=== PATIENT | male | born 1945 | race Hispanic/Latino ===

== ENCOUNTER → 2018-04-25 | Outpatient (CLI) | payer OTHER | END | disposition home or self-care (01) | LOC: RAH 12:14 | PROVIDERS: ATTEND Internal Medicine | DX: K57.30 Diverticulosis of large intestine without perforation or abscess without bleeding (principal) | CPT/HCPCS: 74176 ==

== ENCOUNTER → 2018-08-27 | Outpatient (CLI) | payer OTHER | END | disposition home or self-care (01) | LOC: OIH 09:02 | PROVIDERS: ATTEND Internal Medicine | DX: I10 Essential (primary) hypertension (principal) | CPT/HCPCS: 71046 ==

== ENCOUNTER → 2019-02-17 | Outpatient (CLI) | payer OTHER | END | disposition home or self-care (01) | LOC: RAH 12:21 | PROVIDERS: ATTEND Internal Medicine | DX: K57.30 Diverticulosis of large intestine without perforation or abscess without bleeding (principal); K76.0 Fatty (change of) liver, not elsewhere classified; N20.0 Calculus of kidney; K31.89 Other diseases of stomach and duodenum; K59.00 Constipation, unspecified | CPT/HCPCS: 74176 ==

== ENCOUNTER → 2019-02-25 | Outpatient (CLI) | payer OTHER | END | disposition home or self-care (01) | LOC: OIH 10:59 | PROVIDERS: ATTEND Internal Medicine | DX: I10 Essential (primary) hypertension (principal) | CPT/HCPCS: 71046 ==

== ENCOUNTER → 2020-04-05 | Outpatient (CLI) | payer OTHER | END | disposition home or self-care (01) | LOC: OIH 09:39 | PROVIDERS: ATTEND Internal Medicine | DX: M47.816 Spondylosis without myelopathy or radiculopathy, lumbar region (principal); M48.01 Spinal stenosis, occipito-atlanto-axial region | CPT/HCPCS: 72100 ==

== ENCOUNTER 2020-07-31 21:07 | Emergency (ER) | payer OTHER ==
[2020-07-31] MEDS ORDERED: SODIUM CHLORIDE 0.9% 1000ML 1,000 ML IV ONE (21:08)
[2020-07-31 21:37] LABS: BASOPHILS % (AUTO) 0.4 % (0.0-5.0); EOSINOPHILS % (AUTO) 0.5 % (0.0-8.0); LYMPHOCYTES % (AUTO) 12.3 % (21.0-51.0); MEAN CORPUSCULAR HEMOGLOBIN 30.3 pg (27.0-33.0); MEAN CORPUSCULAR HGB CONC 34.1 g/dL (32.0-36.0); MEAN CORPUSCULAR VOLUME 88.9 fL (79-99); MONOCYTES % (AUTO) 5.1 % (3.0-13.0); NEUTROPHILS % (AUTO) 81.3 % (40.0-77.0); PLATELET COUNT (AUTO) 211 K/uL (130-400); RED BLOOD CELL COUNT(AUTO) 4.95 MIL/uL (4.50-6.20); RED CELL DISTRIBUTION WIDTH 12.7 % (11.0-15.5); WHITE BLOOD COUNT (AUTO) 11.7 K/uL (4.8-10.8)
[2020-07-31] MEDS ORDERED: ONDANSETRON HCL 4 MG/2 ML VIAL ONE (21:55)
[2020-07-31 21:57] LABS: POTASSIUM 3.8 mmol/L (3.5-5.1)
[2020-07-31] MEDS ORDERED: IOHEXOL-350 75 ML VIAL IV ONE (21:59)
[2020-07-31 22:34] LABS: ALBUMIN 3.4 g/dL (3.5-5.0); BILIRUBIN,TOTAL 0.5 mg/dL (0.2-1.0); CREATININE 1.5 mg/dL (0.5-1.5); TOTAL PROTEIN, SERUM 7.4 g/dL (6.0-8.3)
[2020-07-31 22:53] LABS: APPEARANCE,URINE Clear (CLEAR); BILIRUBIN,URINE Negative (NEGATIVE); COLOR,URINE Yellow (YELLOW); GLUCOSE, URINE (UA) 500 mg/dL (NEGATIVE); KETONES,URINE 40 mg/dL (NEGATIVE); LEUKOCYTE ESTERASE ,URINE Negative (NEGATIVE); NITRATE,URINE Negative (NEGATIVE); OCCULT BLOOD,URINE Moderate (NEGATIVE); PROTEIN,URINE Trace mg/dL (NEGATIVE)
[2020-07-31 23:07] LABS: BACTERIA,URINE None Seen /HPF (None Seen); SQUAMOUS EPITHELIAL CELL,UR Rare /HPF (0-2); WBC,URINE None Seen /HPF (0-1); YEAST,URINE BUDDING None Seen /HPF (None Seen)
[2020-08-01] MEDS ORDERED: KETOROLAC TROMETHAMINE 15MG/ML ONE (04:41)
[2020-08-01] MEDS ORDERED: MORPHINE SULFATE 2 MG/ML 1ML SYG ONE (04:42)
== END 2020-08-01 05:21 | disposition home or self-care (01) ==
LOC: EDH 21:07
DX: N13.2 Hydronephrosis with renal and ureteral calculous obstruction (principal); E11.9 Type 2 diabetes mellitus without complications; Z86.73 Personal history of transient ischemic attack (TIA), and cerebral infarction without residual deficits; Z72.0 Tobacco use
CPT/HCPCS: 36415 ×2; 71045; 74176; 80053; 81001; 83605 ×2; 83690; 84484; 85025; 93005; 96361; 96374; 96375; 99285; J1885; J2405; J7030; Q9967

== ENCOUNTER 2022-12-04 17:37 | Emergency (ER) | payer OTHER ==
[~2022-12-04] VITALS: Ht 180.3 cm; Wt 83.9 kg
[2022-12-04] MEDS ORDERED: 0.9%NACL 1000ML 1,000 ML IV ONE (18:00)
[2022-12-04] MEDS ORDERED: ONDANSETRON 4MG INJ IVP ONE (18:00)
[2022-12-04 18:48] LABS: BASOPHILS % (AUTO) 0.3 % (0.0-5.0); EOSINOPHILS % (AUTO) 0.1 % (0.0-8.0); LYMPHOCYTES % (AUTO) 5.8 % (21.0-51.0); MEAN CORPUSCULAR HEMOGLOBIN 29.9 pg (27.0-33.0); MEAN CORPUSCULAR HGB CONC 33.3 g/dL (32.0-36.0); MONOCYTES % (AUTO) 2.4 % (3.0-13.0); NEUTROPHILS % (AUTO) 90.1 % (40.0-77.0); PLATELET COUNT (AUTO) 214 K/uL (130-400); RED BLOOD CELL COUNT(AUTO) 4.78 MIL/uL (4.50-6.20); RED CELL DISTRIBUTION WIDTH 12.6 % (11.0-15.5); WHITE BLOOD COUNT (AUTO) 11.2 K/uL (4.8-10.8)
[2022-12-04 18:56] LABS: CREATININE 1.2 mg/dL (0.5-1.5)
[2022-12-04 18:59] LABS: APPEARANCE,URINE CLEAR (CLEAR); BILIRUBIN,URINE NEGATIVE (NEGATIVE); COLOR,URINE YELLOW (YELLOW); GLUCOSE, URINE (UA) 150 mg/dL (NEGATIVE); KETONES,URINE 40 mg/dL (NEGATIVE); LEUKOCYTE ESTERASE ,URINE NEGATIVE Leu/uL (NEGATIVE); NITRATE,URINE NEGATIVE (NEGATIVE); OCCULT BLOOD,URINE NEGATIVE (NEGATIVE); PH,URINE 5.5 (5.0-8.0); PROTEIN,URINE 30 mg/dL (NEGATIVE)
[2022-12-04 19:04] LABS: MUCUS,URINE RARE LPF (None Seen); RBC,URINE 0-1 /HPF (0-1); SQUAMOUS EPITHELIAL CELL,UR RARE /HPF (0-2)
[2022-12-04 19:05] LABS: ALBUMIN 3.5 g/dL (3.5-5.0); TOTAL PROTEIN, SERUM 7.6 g/dL (6.0-8.3)
[2022-12-04] MEDS ORDERED: IOHEXOL 350 MG/ML 100ML INFUS..BTL IV ONE (19:24)
[2022-12-04] MEDS ORDERED: ONDA-104 PO (22:27)
[2022-12-04] MEDS ORDERED: OMEP40CA21 PO (22:27)
[2022-12-04 22:33] VITALS: BP 140/63
== END 2022-12-04 22:43 | disposition home or self-care (01) ==
LOC: EDH 17:37
DX: K29.00 Acute gastritis without bleeding (principal); E11.9 Type 2 diabetes mellitus without complications; Z79.899 Other long term (current) drug therapy
CPT/HCPCS: 99285; 74177; 96374; 96361; 82150; 84484; 80053; 83690; 85025; 81001; 36415; 93005; J7030; J2405; Q9967

== ENCOUNTER → 2023-01-02 | Outpatient (CLI) | payer OTHER ==
[~2023-01-02] MED LIST: OMEP40CA21 PO; ONDA-104 PO
== END | disposition home or self-care (01) ==
LOC: RAH 13:23
PROVIDERS: ATTEND Family Medicine
DX: G31.9 Degenerative disease of nervous system, unspecified (principal); R53.1 Weakness; R26.9 Unspecified abnormalities of gait and mobility
CPT/HCPCS: 70450

== ENCOUNTER 2023-01-09 12:40 | Observation (INO) | payer OTHER ==
[~2023-01-09] VITALS: Ht 190.5 cm; Wt 88.5 kg
[2023-01-09 15:19] LABS: BASOPHILS % (AUTO) 0.5 % (0.0-5.0); EOSINOPHILS % (AUTO) 0.7 % (0.0-8.0); HEMATOCRIT 46.8 % (42-54); LYMPHOCYTES % (AUTO) 21.7 % (21.0-51.0); MEAN CORPUSCULAR HEMOGLOBIN 30.2 pg (27.0-33.0); MEAN CORPUSCULAR HGB CONC 33.3 g/dL (32.0-36.0); MEAN CORPUSCULAR VOLUME 90.7 fL (79-99); MONOCYTES % (AUTO) 6.2 % (3.0-13.0); NEUTROPHILS % (AUTO) 70.4 % (40.0-77.0); PLATELET COUNT (AUTO) 206 K/uL (130-400); RED BLOOD CELL COUNT(AUTO) 5.16 MIL/uL (4.50-6.20); RED CELL DISTRIBUTION WIDTH 12.9 % (11.0-15.5); WHITE BLOOD COUNT (AUTO) 13.6 K/uL (4.8-10.8)
[2023-01-09 15:30] LABS: CREATININE 0.9 mg/dL (0.5-1.5); POTASSIUM 4.6 mmol/L (3.5-5.1)
[2023-01-09 15:32] LABS: APPEARANCE,URINE CLEAR (CLEAR); BILIRUBIN,URINE NEGATIVE (NEGATIVE); COLOR,URINE YELLOW (YELLOW); GLUCOSE, URINE (UA) NEGATIVE (NEGATIVE); KETONES,URINE NEGATIVE (NEGATIVE); LEUKOCYTE ESTERASE ,URINE NEGATIVE Leu/uL (NEGATIVE); NITRATE,URINE NEGATIVE (NEGATIVE); OCCULT BLOOD,URINE NEGATIVE (NEGATIVE); PH,URINE 5.5 (5.0-8.0); PROTEIN,URINE 10 mg/dL (NEGATIVE)
[2023-01-09 15:35] LABS: ALBUMIN 4.1 g/dL (3.5-5.0); TOTAL PROTEIN, SERUM 8.3 g/dL (6.0-8.3)
[2023-01-09 15:38] LABS: BACTERIA,URINE RARE /HPF (None Seen); MUCUS,URINE RARE LPF (None Seen); OTHER CASTS, URINE 1 /LPF (None Seen); SQUAMOUS EPITHELIAL CELL,UR RARE /HPF (0-2)
[2023-01-09] MEDS ORDERED: LACTULOSE 20 GM/30 ML UDCUP PO PRN (17:00)
[2023-01-09] MEDS ORDERED: ARTIFICAL TEARS SOL 15 ML OP PRN ×2 (17:00→17:30)
[2023-01-09] MEDS ORDERED: ALPRAZOLAM 0.5 MG TABLET PO PRN (17:00)
[2023-01-09] MEDS ORDERED: ALBUTEROL 0.083% 2.5 MG/3 ML INH IH PRN (17:00)
[2023-01-09] MEDS ORDERED: POTASSIUM CHLORIDE 10MEQ/100ML 100 ML IV PRN ×2 (17:00)
[2023-01-09] MEDS ORDERED: MAGNESIUM 2GM PREMIX 50ML 50 ML IV PRN (17:00)
[2023-01-09] MEDS ORDERED: ONDANSETRON 4MG INJ IV PRN (17:00)
[2023-01-09] MEDS ORDERED: LOPERAMIDE HCL 2 MG CAP PO PRN (17:00)
[2023-01-09] MEDS ORDERED: DOCUSATE SODIUM 100 MG CAP PO PRN (17:00)
[2023-01-09] MEDS ORDERED: POTASSIUM CHLORIDE 10% ELIXIR 20 MEQ/15 ML UDCUP PO PRN (17:00)
[2023-01-09] MEDS ORDERED: BENZOCAINE/MENTH/CETYLPYRD CL 1 EACH LOZENGE MM PRN (17:00)
[2023-01-09] MEDS ORDERED: DiphenhydrAMINE HCL 50 MG/ML VIAL IV PRN (17:00)
[2023-01-09] MEDS ORDERED: KCL 20 MEQ ERTAB PO PRN (17:00)
[2023-01-09] MEDS ORDERED: DEXTROSE 50%-WATER 50 ML DISP.SYRIN IV PRN (17:00)
[2023-01-09] MEDS ORDERED: GLUCAGON 1MG KIT 1 MG ML IM PRN (17:00)
[2023-01-09] MEDS ORDERED: ZOLPIDEM TARTRATE 5 MG TAB PO PRN (17:00)
[2023-01-09] MEDS ORDERED: POLYETHYLENE GLYCOL 3350 17 GM POWD.PACK PO PRN (17:00)
[2023-01-09] MEDS ORDERED: GUAIFENESIN SUGAR-FREE 100 MG/5 ML UDCUP PO PRN (17:00)
[2023-01-09] MEDS ORDERED: ACETAMINOPHEN 325 MG TAB PO PRN ×2 (17:00)
[2023-01-09] MEDS ORDERED: FAMOTIDINE 20MG VIAL IV SCH (21:00)
[2023-01-10 05:29] LABS: ALBUMIN 3.4 g/dL (3.5-5.0); CREATININE 0.9 mg/dL (0.5-1.5); MAGNESIUM 2.2 mg/dL (1.80-2.40); POTASSIUM 3.7 mmol/L (3.5-5.1); TOTAL PROTEIN, SERUM 6.9 g/dL (6.0-8.3)
[2023-01-10] MEDS ORDERED: ONDANSETRON 4MG TABLET PO PRN (10:30)
[2023-01-10 13:17] VITALS: BP 121/65
[2023-01-11] MEDS ORDERED: PANTOPRAZOLE 40 MG TAB DR PO SCH (09:00)
== END 2023-01-10 12:59 | disposition left against medical advice (07) ==
LOC: EDH 12:40 → EDHIP 12:59 → INTOOBSV 16:37
PROVIDERS: ADMIT Internal Medicine Critical Care Medicine; ATTEND Internal Medicine Critical Care Medicine
DX: S12.110A Anterior displaced Type II dens fracture, initial encounter for closed fracture (principal); Z20.822 Contact with and (suspected) exposure to COVID-19; S09.90XA Unspecified injury of head, initial encounter; I10 Essential (primary) hypertension; E11.9 Type 2 diabetes mellitus without complications; D72.829 Elevated white blood cell count, unspecified; E78.00 Pure hypercholesterolemia, unspecified; R42 Dizziness and giddiness; W01.0XXA Fall on same level from slipping, tripping and stumbling without subsequent striking against object, initial encounter; Y92.009 Unspecified place in unspecified non-institutional (private) residence as the place of occurrence of the external cause; Y93.89 Activity, other specified; Y99.8 Other external cause status
CPT/HCPCS: 96374; 99285; 84484; 80053 ×2; 85025; 87880; 87804 ×2; 83605; 81001; 36415 ×2; 87635; 71045; 72100; 72070; 70450; 72125; 93005; 94664; 83735; 72040; 97161; 97039; 97116; G0378 ×20; C9803; J3490 ×2

== ENCOUNTER 2025-03-27 16:35 | Emergency (ER) | payer OTHER ==
[~2025-03-27] VITALS: Ht 172.7 cm; Wt 99.8 kg
[~2025-03-27 16:35] MED LIST changes: +AMOX1TAB16 PO; +ATOR10TA69 PO; +DIPH-1242 PO; +FAMO-136 PO; +LISI2.5T13 PO; +METF-444 PO; +TAMSULOSIN PO
--- NOTE | 2025-03-27 16:59 | ERN ---
ED Note History of Present Illness Stated Complaint: DIARRHEA Chief Complaint: Diarrhea Time Seen by MD: 16:40 Time Seen by Midlevel: 16:41 Dictation: 80-year-old male presents to the emergency department accompanied by his daughter for evaluation due to report of having nausea, vomiting and diarrhea that began yesterday. He states that yesterday he had approximately 4 episodes of vomiting and 1 of diarrhea. Today, he states that he only has some mild nausea. However, he states that today he did wake up with some abdominal pain primarily located on the left lower quadrant. He denies having had contact with anybody with similar symptoms. Patient states that he is the only 1 of the household presenting with these symptoms. He states that his level of abdominal pain he is rated as a 4/10. Upon initial evaluation, the patient presents mildly uncomfortable looking. Allergies: Coded Allergies: No Known Allergies (Verified Allergy, Unknown, 07/06/16) No Known Drug Allergies (Unverified Allergy, Unknown, 08/28/24) Emergency Care FILAMENT CUTTER: None Home Meds Active Scripts Diphenhydramine HCl (Benadryl) 25 Mg Cap, 25 MG PO QIDP PRN for ITCHING, #30 CAP 0 Refills Prov:ARNAV [facility]OD [facility] 07/26/23 Famotidine (Pepcid) 20 Mg Tablet, 20 MG PO BID, #30 TAB 0 Refills Prov:ARNAV NORWOOD [facility] 07/26/23 Amoxicillin/Potassium Clav (Amox Tr-K Clv 875-125 mg Tab) 875 Mg-125 Mg Tablet, 1 EACH PO Q12H, #14 TAB 0 Refills Prov:ARNAV [facility]WOOD [facility] 07/26/23 Ondansetron HCl (Ondansetron HCl) 4 Mg Tablet, 4 MG PO TIDP PRN for VOMITING, #20 TAB Prov:ELIZABETH GIVENS MD 12/04/22 Omeprazole (Omeprazole) 40 Mg Capsule.dr, 40 MG PO DAILY, #30 CAP Prov:ELIZABETH GIVENS MD 12/04/22 Reported Medications Metformin HCl (Metformin HCl) 500 Mg Tablet, 1 TAB PO DAILY 07/23/23 [Tamsulosin] No Conflict Check, 0.4 MG PO DAILY 07/23/23 Lisinopril (Lisinopril) 2.5 Mg Tablet, 1 TAB PO DAILY 07/23/23 Atorvastatin Calcium (Atorvastatin Calcium) 10 Mg Tablet, 1 TAB PO DAILY 07/23/23 Past Medical History Past Medical History: CVA, Diabetes-Type II, High Cholesterol Surgical History: Other Surgical History Other: NECK Social History: Negative, Lives with family RN Note Reviewed/Agreed w/PFSH: Yes Review of System Dictation Constitutional: Chills Abdomen/GI: Abdominal pain, nausea Initial Vital Sign VS Vital Signs Date Time Temp Pulse Resp B/P (MAP) Pulse Ox O2 Delivery O2 Flow Rate FiO2 03/27/25 16:37 98.1 111 18 141/84 96 03/27/25 17:12 Room Air* 0 21 Physical Exam Dictation General: awake, alert, uncomfortable looking Head/Face: Normocephalic, atraumatic Eyes: PERRL, EOMI ENT: Oral mucosa dry Neck: Trachea midline, supple Cardiovascular: RRR, no edema Respiratory: Symmetrical, non-labored Abdomen: Soft, tenderness to the left lower quadrant with voluntary guarding, non-distended, no guarding. Skin: Warm, dry, good turgor, no rash MS/Extremity: Pulses equal, no cyanosis, neurovascular intact, FROM Neuro: COAx4, GCS 15, steady gait, Results (Laboratory/Radiology) Laboratory/Radiology Laboratory Tests Test 03/27/25 17:04 03/27/25 17:57 03/27/25 19:08 White Blood Count 13.4 K/uL (4.8-10.8) H Red Blood Count 4.83 MIL/uL (4.50-6.20) Hemoglobin 14.6 g/dL (14.0-18.0) Hematocrit 42.9 % (42-54) Mean Corpuscular Volume 88.8 fL (79-99) Mean Corpuscular Hemoglobin 30.2 pg (27.0-33.0) Mean Corpuscular Hemoglobin Concent 34.0 g/dL (32.0-36.0) Red Cell Distribution Width 13.0 % (11.0-15.5) Platelet Count 182 K/uL (130-400) Mean Platelet Volume 10.8 fL (7.5-10.5) H Immature Granulocyte % (Auto) 0.5 % (0-1) Neutrophils (%) (Auto) 75.9 % (40.0-77.0) Lymphocytes (%) (Auto) 14.9 % (21.0-51.0) L Monocytes (%) (Auto) 7.7 % (3.0-13.0) Eosinophils (%) (Auto) 0.6 % (0.0-8.0) Basophils (%) (Auto) 0.4 % (0.0-5.0) Neutrophils # (Auto) 10.2 K/uL (1.8-7.7) H Lymphocytes # (Auto) 2.0 K/uL (1.0-4.8) Monocytes # (Auto) 1.0 K/uL (0.1-1.0) Eosinophils # (Auto) 0.08 K/uL (0.00-0.70) Basophils # (Auto) 0.05 K/uL (0.00-0.20) Absolute Immature Granulocyte (auto 0.07 K/uL (0-1) Nucleated Red Blood Cells 0.0 % (0.0-0.19) Sodium Level 132 mmol/L (136-145) L Potassium Level 3.3 mmol/L (3.5-5.1) L Chloride Level 97 mmol/L (101-111) L Carbon Dioxide Level 28 mmol/L (21-32) Blood Urea Nitrogen 18 mg/dL (7-18) Creatinine 1.5 mg/dL (0.5-1.3) H Glomerular Filtration Rate Calc 46 mL/min (>90) Random Glucose 187 mg/dL (70-105) H Lactic Acid Level 1.8 mmol/L (0.8-2.5) Total Calcium 8.4 mg/dL (8.5-10.1) L Total Bilirubin 0.9 mg/dL (0.2-1.0) Aspartate Amino Transf (AST/SGOT) 17 U/L (10-37) Alanine Aminotransferase (ALT/SGPT) 17 U/L (12-78) Alkaline Phosphatase 136 U/L (50-136) Troponin I High Sensitivity 6 ng/L (4-75) Total Protein 6.9 g/dL (6.0-8.3) Albumin 3.0 g/dL (3.5-5.0) L Lipase 29 U/L (16-77) Influenza Type A Antigen Negative For Type A Influenza Type B Antigen Negative For Type B SARS-CoV-2 Antigen (Rapid) PRESUMPTIVE NEGATIVE Urine Color COLORLESS (YELLOW) Urine Appearance CLEAR (CLEAR) Urine pH 6.5 (5.0-8.0) Urine Specific [place] 1.020 (1.001-1.031) Urine Protein NEGATIVE mg/dL (NEGATIVE) Urine Glucose (UA) 50 mg/dL (NEGATIVE) H Urine Ketones NEGATIVE mg/dL (NEGATIVE) Urine Occult Blood SMALL (NEGATIVE) H Urine Nitrate NEGATIVE (NEGATIVE) Urine Bilirubin NEGATIVE mg/dL (NEGATIVE) Urine Urobilinogen 0.2 mg/dL (0.2-1.0) Urine Leukocyte Esterase 25 Greta/uL (NEGATIVE) H Urine RBC 2-5 /HPF (0-1) H Urine WBC 11-25 /HPF (0-1) H Urine Squamous Epithelial Cells RARE /HPF (0-2) Urine Bacteria RARE /HPF (None Seen) Labs Reviewed?: Yes EKG Comment: EKG done on 03/27/2025 at 5:09 p.m.. Ventricular rate 93 beats per minute MI 170 MS QRS 93 MS QT 383 MS No STEMI. CT Scan Comment: CT abdomen/pelvis with IV contrast revealing a 4 mm ureteral stone with mild hydronephrosis as per radiology's read. ED Course ED Course Orders Procedure Category Date Status Time Cbc With Differential LAB 03/27/25 Complete 16:50 Comprehensive LAB 03/27/25 Complete Metabolic Panel 16:50 Urinalysis Profile LAB 03/27/25 Complete 16:50 Troponin I High LAB 03/27/25 Complete Sensitivity 16:51 Lactic Acid LAB 03/27/25 Complete 16:51 Influenza Type A & B, LAB 03/27/25 Complete Rapid 16:51 Covid19 (Sars Antigen LAB 03/27/25 Complete Rapid) 16:51 Blood Cult RACHELLE 03/27/25 In Process 16:51 Saline Lock Iv CPOE 03/27/25 Transmitted 16:51 Lipase LAB 03/27/25 Complete 16:51 0.9%Nacl 1000ml (Ns PHA 03/27/25 Complete 1000ml) 17:00 Ondansetron 4mg Inj PHA 03/27/25 Complete (Zofran 4mg Inj) 17:00 Chest 1vw RAD 03/27/25 Resulted 16:51 12 Lead Ekg Tracing- EKG 03/27/25 Complete Technical 16:51 Ct Abdomen/Pelvis CT 03/27/25 Resulted W/Contrast 16:55 Zosyn 3.375gm+Ns 50ml PHA 03/27/25 Complete (Zosyn 3.375gm+Ns 17:00 Iohexol (Omnipaque) PHA 03/27/25 Complete 17:54 Tamsulosin Hcl PHA 03/27/25 Complete (Flomax) 19:00 Culture Urine RACHELLE 03/27/25 In Process 19:23 Current Medications Medications (Trade) Dose Ordered Sig/Glynn Route PRN Reason Start Time Stop Time Status Last Admin Dose Admin Iohexol (Omnipaque) 75 ml STK-MED ONCE IV 03/27/25 17:54 03/27/25 17:58 DC Ondansetron HCl (zoFRAN 4MG INJ) 4 mg ONCE ONCE IVP 03/27/25 17:00 03/27/25 17:01 DC 03/27/25 17:48 Piperacillin Sod/ Tazobactam Sod (Zosyn 3.375gm+NS 50ml) 3.375 gm ONCE ONCE IV 03/27/25 17:00 03/27/25 17:01 DC 03/27/25 17:48 Sodium Chloride 1,000 ml @ 0 mls/hr ONCE ONCE IV 03/27/25 17:00 03/27/25 17:01 DC 03/27/25 17:48 Tamsulosin HCl (FloMAX) 0.4 mg ONCE ONCE PO 03/27/25 19:00 03/27/25 19:01 DC Vital Signs Date Time Temp Pulse Resp B/P (MAP) Pulse Ox O2 Delivery O2 Flow Rate FiO2 03/27/25 17:12 98.2 96 23 169/86 95 Room Air* 0 21 03/27/25 16:37 98.1 111 18 141/84 96 Medical Decision Making MDM MDM: Differential diagnosis: Diarrhea, acute gastroenteritis, acute UTI, acute pyelonephritis. Rationale: Tests considered and ordered secondary to shared decision making include: Previous outside records reviewed: Old ER visits. Risk of complication and/or morbidity or mortality of patient management: None Medications-Per medication reconciliation Need for hospitalization: Patient does not meet criteria for hospitalization. Need for emergency major/minor surgery: No There are no social concerns with this patient. Prescription drug management Prescriptions will include symptomatic care Patient's prior external medical records from other ER visits were reviewed by me as indicated. Prior testing and results from previous visits were reviewed. Prior tests were taken into account with medical decision making and resource utilization, independent historian/historians were used to obtain complete medical history. I independently interpreted the test that were performed, results were reviewed by me and considered findings on radiology if ordered. Medical management and examination interpretation discussions were had by me with other qualified healthcare professionals as indicated for the patient's care. The patient initially presented with a report of having mild abdominal pain with diarrhea. The concern initially was that of an acute diverticulitis or small- bowel obstruction. However, he was noted to have a 4 mm ureteral stone for which Flomax was given and he was able to have significant release. Patient was medicated with Zosyn and will be discharged home with the oral antibiotic for which the patient agrees along with the family to the treatment plan of care for DX & DISP Disposition: Discharge Departure Impression: Primary Impression: Acute UTI Additional Impressions: Left ureteral stone, Diarrhea Condition: Stable Scripts Cephalexin Monohydrate (Keflex) 500 Mg Cap 500 MG PO TID for 7 Days, #21 CAP Prov: RYNE HOLLAND 03/27/25 Tamsulosin HCl (Flomax) 0.4 Mg Cap.er.24h 1 CAP PO DAILY for 30 Days, #30 CAP 0 Refills Prov: RYNE HOLLAND 03/27/25 Referrals: BARRY STEEN MD (PCP) Time of Disposition: 19:52 RYNE HOLLAND Mar 27, 2025 16:59
--- NOTE | 2025-03-27 17:09 | NUR ---
PENDING GFR RESULTS, IV SITE, & CONSENT FOR CT EXAM.
[2025-03-27 17:15] LABS: IMMATURE GRANULOCYTE ABSOLUTE 0.07 K/uL (0-1); NUCLEATED RED BLOOD CELLS 0.0 % (0.0-0.19); PLATELET COUNT (AUTO) 182 K/uL (130-400); RED BLOOD CELL COUNT(AUTO) 4.83 MIL/uL (4.50-6.20); RED CELL DISTRIBUTION WIDTH 13.0 % (11.0-15.5); WHITE BLOOD COUNT (AUTO) 13.4 K/uL (4.8-10.8)
--- NOTE | 2025-03-27 17:15 | EKG ---
[facility] Test Date: 2025-03-27 Test Time: 17:09:57 Pat Name: NEAL FERNÁNDEZ Department: ED Room: Gender: M Production Support Consultant: [id number] : 1945 Requested By: RYNE HOLLAND Order Number: [id number] Reading MD: Marce Boston Measurements Intervals [place] Rate: 93 P: 30 SD: 170 QRS: -15 QRSD: 93 T: 53 QT: 383 QTc: 476 Interpretive Statements Sinus rhythm Inferior infarct, old Compared to ECG 07/20/2023 16:32:38 Myocardial infarct finding now present Electronically Signed On 03-28-2025 05:43:54 CDT by Marce Boston Please click the below link to view image of tracing.
[2025-03-27 17:25] LABS: CREATININE 1.5 mg/dL (0.5-1.3); GLOMERULAR FILTR. RATE CALC 46.0 mL/min (>90); GLUCOSE,RANDOM 187.0 mg/dL (70-105); SODIUM SERUM 132.0 mmol/L (136-145); UREA NITROGEN, BLOOD 18.0 mg/dL (7-18)
[2025-03-27 17:39] LABS: ASPARTATE AMINOTRANSFERASE 17.0 U/L (10-37); TOTAL PROTEIN, SERUM 6.9 g/dL (6.0-8.3)
[2025-03-27] MEDS: 0.9%NACL 1000ML 1,000 ML IV ONE (17:48)
[2025-03-27] MEDS: ZOSYN 3.375GM +NS 50ML IV ONE (17:48)
[2025-03-27] MEDS ORDERED: IOHEXOL-350 75 ML VIAL IV ONE (17:54)
--- NOTE | 2025-03-27 18:13 | HMCIMG ---
EXAM: CR Chest, 1 View. CLINICAL HISTORY: pain COMPARISON: None provided. FINDINGS: LUNGS: The lungs show no infiltrate or other acute finding. PLEURAL SPACES: No pleural effusion or pneumothorax. MEDIASTINUM: Cardiac size and mediastinal contours within normal limits. BONES: No acute osseous abnormality. IMPRESSION: No acute cardiopulmonary pathology is evident. /[place]
[2025-03-27 18:38] LABS: COVID19 (SARS ANTIGEN RAPID) PRESUMPTIVE NEGATIVE (NEGATIVE); INFLUENZA TYPE A Negative For Type A (NEGATIVE); INFLUENZA TYPE B Negative For Type B (NEGATIVE)
[2025-03-27 19:15] LABS: APPEARANCE,URINE CLEAR (CLEAR); GLUCOSE, URINE (UA) 50 mg/dL (NEGATIVE); LEUKOCYTE ESTERASE ,URINE 25 Leu/uL (NEGATIVE); NITRATE,URINE NEGATIVE (NEGATIVE); OCCULT BLOOD,URINE SMALL (NEGATIVE)
[2025-03-27 19:16] LABS: ADD UA MICROSCOPIC YES
[2025-03-27 19:22] LABS: SQUAMOUS EPITHELIAL CELL,UR RARE /HPF (0-2)
--- NOTE | 2025-03-27 19:41 | HMCIMG ---
EXAM: CT Abdomen and Pelvis with IV contrast CLINICAL HISTORY: pain TECHNIQUE: Axial computed tomography images of the abdomen and pelvis with intravenous contrast. CONTRAST: with intravenous contrast. COMPARISON: CT abdomen dated 12/04/22. FINDINGS: LUNG BASES: The right lung base demonstrates a few emphysematous bullae. The largest one measures 3 cm. No pneumothorax or pleural effusion.Atherosclerosis of the coronary arteries. LIVER: Unremarkable. GALLBLADDER AND BILE DUCTS: The gallbladder appears within normal limits. No radio-opaque gallstones are seen. No biliary ductal dilatation is evident. PANCREAS: Unremarkable. SPLEEN: Unremarkable. ADRENAL GLANDS: Unremarkable. KIDNEYS, URETERS, AND BLADDER: The left renal system shows an impacted calculus at the proximal ureter (approximately 8.0 cm distal to the left UPJ), causing mild hydroureter and hydronephrosis. The calculus measures 4 mm in size The right kidney is unremarkable. STOMACH AND BOWEL: Unremarkable appearance of the stomach and bowel. No evidence of bowel obstruction. No evidence suggesting enteritis or colitis. APPENDIX: No evidence of acute appendicitis on CT examination. PERITONEUM: No free fluid. No free air. LYMPH NODES: No lymphadenopathy is evident. REPRODUCTIVE: Mildly enlarged prostate indenting the bladder base. VASCULATURE: No evidence of abdominal aortic aneurysm. BONES: No aggressive appearing osseous lesion. No acute osseous pathology evident. IMPRESSION: 1. Left proximal ureteral calculus (4 mm) with mild hydroureter and hydronephrosis. /[place]
[2025-03-27] MEDS ORDERED: CEPH500B PO (19:52)
[2025-03-27] MEDS ORDERED: TAMS-55 PO (19:52)
[2025-03-27 20:09] VITALS: BP 156/76; PULSE 98; RESP 22; TEMP 98.4; O2SAT 96
== END 2025-03-27 20:22 | disposition home or self-care (01) ==
LOC: EDH 16:35
DX: N39.0 Urinary tract infection, site not specified (principal); N20.1 Calculus of ureter; R19.7 Diarrhea, unspecified; E11.9 Type 2 diabetes mellitus without complications; E78.00 Pure hypercholesterolemia, unspecified; Z79.84 Long term (current) use of oral hypoglycemic drugs; Z79.899 Other long term (current) drug therapy; Z86.73 Personal history of transient ischemic attack (TIA), and cerebral infarction without residual deficits; Z20.822 Contact with and (suspected) exposure to COVID-19
CPT/HCPCS: 99285; 74177; 96365; 71045; 96366; 96375; 87426; 84484; 80053; 83690; 85025; 87040 ×2; 87086; 87804 ×2; 83605; 81001; 36415; 93005; J7030; J2405; J2543; Q9967

== ENCOUNTER 2025-04-04 10:50 | Inpatient (IN) | payer OTHER ==
[~2025-04-04] VITALS: Ht 188 cm; Wt 106.4 kg
[~2025-04-04 10:50] MED LIST changes: +CEPH500B PO; +TAMS-55 PO
[2025-04-04] MEDS: 0.9%NACL 1000ML 1,000 ML IV ONE (11:50)
[2025-04-04 12:01] LABS: IMMATURE GRANULOCYTE ABSOLUTE 0.16 K/uL (0-1); NUCLEATED RED BLOOD CELLS 0.0 % (0.0-0.19); PLATELET COUNT (AUTO) 321 K/uL (130-400); RED BLOOD CELL COUNT(AUTO) 5.15 MIL/uL (4.50-6.20); RED CELL DISTRIBUTION WIDTH 12.4 % (11.0-15.5); WHITE BLOOD COUNT (AUTO) 12.2 K/uL (4.8-10.8)
--- NOTE | 2025-04-04 12:03 | HMCIMG ---
EXAM: CR Chest, 1 View. CLINICAL HISTORY: AMS COMPARISON: 03/27/23 FINDINGS: LUNGS: There is no mass, infiltrate, or acute pulmonary abnormality. PLEURAL SPACES: No pleural effusion or pneumothorax. MEDIASTINUM: The cardiomediastinal silhouette is within normal limits. BONES: No acute osseous abnormality. IMPRESSION: No acute cardiopulmonary pathology is evident. /[place]
[2025-04-04 12:14] LABS: CREATININE 1.5 mg/dL (0.5-1.3); GLOMERULAR FILTR. RATE CALC 46.0 mL/min (>90); GLUCOSE,RANDOM 184.0 mg/dL (70-105); SODIUM SERUM 132.0 mmol/L (136-145); UREA NITROGEN, BLOOD 24.0 mg/dL (7-18)
[2025-04-04 12:18] LABS: ASPARTATE AMINOTRANSFERASE 19.0 U/L (10-37); CREATINE KINASE, TOTAL 32.0 U/L (21-232); TOTAL PROTEIN, SERUM 7.9 g/dL (6.0-8.3)
[2025-04-04 12:49] LABS: APPEARANCE,URINE CLOUDY (CLEAR); GLUCOSE, URINE (UA) NEGATIVE (NEGATIVE); LEUKOCYTE ESTERASE ,URINE 250 Leu/uL (NEGATIVE); NITRATE,URINE NEGATIVE (NEGATIVE); OCCULT BLOOD,URINE SMALL (NEGATIVE)
[2025-04-04 12:56] LABS: ADD UA MICROSCOPIC YES
[2025-04-04 12:57] LABS: SQUAMOUS EPITHELIAL CELL,UR FEW /HPF (0-2); WBC CLUMP FEW /HPF (0-1)
--- NOTE | 2025-04-04 13:09 | HMCIMG ---
EXAM: CT Head Without IV contrast. CLINICAL HISTORY: AMS TECHNIQUE: Axial computed tomography images of the head/brain without intravenous contrast. COMPARISON: 01/09/23 FINDINGS: BRAIN: No acute bleed or infarct. Stable chronic ischemic and atrophic changes. Stable old bilateral occipital infarcts with encephalomalacia and dystrophic calcifications. Stable small old lacunar infarct in the bilateral basal ganglia. No midline shift or extra-axial collections. VENTRICLES: No hydrocephalus. ORBITS: The orbits are unremarkable. SINUSES AND MASTOIDS: The paranasal sinuses and mastoid air cells are clear. BONES: No fracture. SOFT TISSUES: Unremarkable. IMPRESSION: No acute bleed or infarct. Stable chronic ischemic and atrophic changes. Stable old bilateral occipital infarcts with encephalomalacia and dystrophic calcifications. Stable small old lacunar infarct in the bilateral basal ganglia. /[place]
--- NOTE | 2025-04-04 15:21 | EKG ---
[facility] Test Date: 2025-04-04 Test Time: 11:52:40 Pat Name: NEAL FERNÁNDEZ Department: ED Room: Gender: M Channel Account Manager: 07 : 1945 Requested By: SHARON AVELAR Order Number: [id number] Reading MD: Vel Smart Measurements Intervals [place] Rate: 106 P: 57 [place]: 161 QRS: 34 QRSD: 90 T: 91 QT: 362 QTc: 482 Interpretive Statements Sinus tachycardia Compared to ECG 03/27/2025 17:09:57 Sinus rhythm no longer present Myocardial infarct finding no longer present Electronically Signed On 04-04-2025 15:25:45 CDT by Vel Smart Please click the below link to view image of tracing.
--- NOTE | 2025-04-04 15:23 | ERN ---
ED Note History of Present Illness Stated Complaint: HALLUCINATION Chief Complaint: Halluciations Time Seen by MD: 10:56 Dictation: 80-year-old male presenting to the emergency department with confusion and generalized weakness decreased p.o. intake patient was seen here two days ago for mild UTI and discharged on antibiotics however he is not doing any better. Family reports he is now showing worsening symptoms including hallucinations Allergies: Coded Allergies: No Known Allergies (Verified Allergy, Unknown, 07/06/16) No Known Drug Allergies (Unverified Allergy, Unknown, 08/28/24) Home Meds Active Scripts Cephalexin Monohydrate (Keflex) 500 Mg Cap, 500 MG PO TID for 7 Days, #21 CAP Prov:RYNE HOLLAND REGISTERED NURSE HH CASE MANAGER 03/27/25 Tamsulosin HCl (Flomax) 0.4 Mg Cap.er.24h, 1 CAP PO DAILY for 30 Days, #30 CAP 0 Refills Prov:RYNE HOLLAND REGISTERED NURSE HH CASE MANAGER 03/27/25 Diphenhydramine HCl (Benadryl) 25 Mg Cap, 25 MG PO QIDP PRN for ITCHING, #30 CAP 0 Refills Prov:ARNAV [facility]OD [facility] 07/26/23 Famotidine (Pepcid) 20 Mg Tablet, 20 MG PO BID, #30 TAB 0 Refills Prov:ARNAV [facility]OD [facility] 07/26/23 Amoxicillin/Potassium Clav (Amox Tr-K Clv 875-125 mg Tab) 875 Mg-125 Mg Tablet, 1 EACH PO Q12H, #14 TAB 0 Refills Prov:ARNAV [facility]OD [facility] 07/26/23 Ondansetron HCl (Ondansetron HCl) 4 Mg Tablet, 4 MG PO TIDP PRN for VOMITING, #20 TAB Prov:ELIZABETH GIVENS MD 12/04/22 Omeprazole (Omeprazole) 40 Mg Capsule.dr, 40 MG PO DAILY, #30 CAP Prov:ELIZABETH GIVENS MD 12/04/22 Reported Medications Metformin HCl (Metformin HCl) 500 Mg Tablet, 1 TAB PO DAILY 07/23/23 [Tamsulosin] No Conflict Check, 0.4 MG PO DAILY 07/23/23 Lisinopril (Lisinopril) 2.5 Mg Tablet, 1 TAB PO DAILY 07/23/23 Atorvastatin Calcium (Atorvastatin Calcium) 10 Mg Tablet, 1 TAB PO DAILY 07/23/23 Past Medical History Past Medical History: CVA, Diabetes-Type II, High Cholesterol Surgical History: Other Surgical History Other: NECK Social History: Negative, Lives with family Review of System Dictation Unable to obtain due to mental status Initial Vital Sign VS Vital Signs Date Time Temp Pulse Resp B/P (MAP) Pulse Ox O2 Delivery O2 Flow Rate FiO2 04/04/25 10:52 98.4 116 18 121/81 97 Room Air 04/04/25 11:46 0 21 Physical Exam Dictation General: awake, alert, no distress Head/Face: Normocephalic, atraumatic Eyes: PERRL, EOMI, vision at baseline ENT: oral cavity clear, TMs clear, no signs of infection Neck: Trachea midline, supple, no nuchal rigidity Cardiovascular: RRR, normal S1/S2, No MRGs, no JVD Respiratory: CTAB, no respiratory distress, No rales or wheezes Abdomen: Soft, non-tender, non-distended, normal bowel sounds, no guarding or rebound. Skin: Warm, dry, normal turgor, no rash MS/Extremity: Pulses equal, no cyanosis, neurovascular intact, FROM Neuro: Normal tone and strength on neurologic exam however patient is somewhat confused of current situation Results (Laboratory/Radiology) Laboratory/Radiology Laboratory Tests Test 04/04/25 11:50 04/04/25 12:00 White Blood Count 12.2 K/uL (4.8-10.8) H Red Blood Count 5.15 MIL/uL (4.50-6.20) Hemoglobin 15.6 g/dL (14.0-18.0) Hematocrit 46.3 % (42-54) Mean Corpuscular Volume 89.9 fL (79-99) Mean Corpuscular Hemoglobin 30.3 pg (27.0-33.0) Mean Corpuscular Hemoglobin Concent 33.7 g/dL (32.0-36.0) Red Cell Distribution Width 12.4 % (11.0-15.5) Platelet Count 321 K/uL (130-400) Mean Platelet Volume 10.8 fL (7.5-10.5) H Immature Granulocyte % (Auto) 1.3 % (0-1) H Neutrophils (%) (Auto) 64.1 % (40.0-77.0) Lymphocytes (%) (Auto) 26.1 % (21.0-51.0) Monocytes (%) (Auto) 6.1 % (3.0-13.0) Eosinophils (%) (Auto) 1.5 % (0.0-8.0) Basophils (%) (Auto) 0.9 % (0.0-5.0) Neutrophils # (Auto) 7.8 K/uL (1.8-7.7) H Lymphocytes # (Auto) 3.2 K/uL (1.0-4.8) Monocytes # (Auto) 0.7 K/uL (0.1-1.0) Eosinophils # (Auto) 0.18 K/uL (0.00-0.70) Basophils # (Auto) 0.11 K/uL (0.00-0.20) Absolute Immature Granulocyte (auto 0.16 K/uL (0-1) Nucleated Red Blood Cells 0.0 % (0.0-0.19) Sodium Level 132 mmol/L (136-145) L Potassium Level 3.4 mmol/L (3.5-5.1) L Chloride Level 95 mmol/L (101-111) L Carbon Dioxide Level 26 mmol/L (21-32) Blood Urea Nitrogen 24 mg/dL (7-18) H Creatinine 1.5 mg/dL (0.5-1.3) H Glomerular Filtration Rate Calc 46 mL/min (>90) Random Glucose 184 mg/dL (70-105) H Lactic Acid Level 2.9 mmol/L (0.8-2.5) H Total Calcium 9.0 mg/dL (8.5-10.1) Total Bilirubin 0.9 mg/dL (0.2-1.0) Direct Bilirubin 0.3 mg/dL (0.0-0.3) Aspartate Amino Transf (AST/SGOT) 19 U/L (10-37) Alanine Aminotransferase (ALT/SGPT) 17 U/L (12-78) Alkaline Phosphatase 119 U/L (50-136) Total Creatine Kinase 32 U/L (21-232) # Troponin I High Sensitivity 44 ng/L (4-75) Total Protein 7.9 g/dL (6.0-8.3) Albumin 2.7 g/dL (3.5-5.0) L Urine Color YELLOW (YELLOW) Urine Appearance CLOUDY (CLEAR) H Urine pH 5.5 (5.0-8.0) Urine Specific [place] 1.016 (1.001-1.031) Urine Protein 20 mg/dL (NEGATIVE) H Urine Glucose (UA) NEGATIVE mg/dL (NEGATIVE) Urine Ketones 10 mg/dL (NEGATIVE) H Urine Occult Blood SMALL (NEGATIVE) H Urine Nitrate NEGATIVE (NEGATIVE) Urine Bilirubin NEGATIVE mg/dL (NEGATIVE) Urine Urobilinogen 2.0 mg/dL (0.2-1.0) H Urine Leukocyte Esterase 250 Greta/uL (NEGATIVE) H Urine RBC 2-5 /HPF (0-1) H Urine WBC 26-50 /HPF (0-1) H Urine WBC Clumps (Auto) FEW /HPF (0-1) Urine Squamous Epithelial Cells FEW /HPF (0-2) Urine Bacteria None /HPF (None Seen) Labs Reviewed?: Yes EKG: (+) NSR, (+) rhythm, (+) NE, (+) QRS, (+) nonspecific ST T wave chg ED Course ED Course Orders Procedure Category Date Status Time 12 Lead Ekg Tracing- EKG 04/04/25 Logged Technical 11:11 Hepatic Function Panel LAB 04/04/25 Complete 11:11 Creatine Kinase, Total LAB 04/04/25 Complete 11:11 Basic Metabolic Panel LAB 04/04/25 Complete 11:11 Blood Cult RACHELLE 04/04/25 In Process 11:11 Cbc With Differential LAB 04/04/25 Complete 11:11 Lactic Acid LAB 04/04/25 Complete 11:11 Troponin I High LAB 04/04/25 Complete Sensitivity 11:11 Urinalysis Profile LAB 04/04/25 Complete 11:11 Ct Head/Brain W/O CT 04/04/25 Resulted Contrast 11:11 Chest 1vw RAD 04/04/25 Resulted 11:11 Ceftriaxone 2gm Vial PHA 04/04/25 Complete (Rocephin 2gm Inj) 11:30 0.9%Nacl 1000ml (Ns PHA 04/04/25 Complete 1000ml) 11:30 Culture Urine RACHELLE 04/04/25 In Process 12:56 Lactic Acid (Removed) LAB 04/04/25 Logged 15:08 Current Medications Medications (Trade) Dose Ordered Sig/Glynn Route PRN Reason Start Time Stop Time Status Last Admin Dose Admin Ceftriaxone Sodium (Rocephin 2gm Inj) 2 gm ONCE ONCE IVPB 04/04/25 11:30 04/04/25 11:31 DC 04/04/25 11:50 Sodium Chloride 1,000 ml @ 0 mls/hr ONCE ONCE IV 04/04/25 11:30 04/04/25 11:31 DC 04/04/25 11:50 Vital Signs Date Time Temp Pulse Resp B/P (MAP) Pulse Ox O2 Delivery O2 Flow Rate FiO2 04/04/25 14:07 98.1 77 18 145/73 95 Room Air* 0 04/04/25 13:01 98.1 80 18 137/81 98 Room Air* 0 04/04/25 11:46 97.7 104 18 132/78 97 Room Air* 0 04/04/25 10:52 98.4 116 18 121/81 97 Room Air Medical Decision Making MDM MDM: Differential diagnosis: Rationale: Tests considered and ordered secondary to shared decision making include: labs, ECG and radiology Previous outside records reviewed: Old ER visits. Risk of complication and/or morbidity or mortality of patient management: None Medications-Per medication reconciliation Need for hospitalization: Patient does meet criteria for hospitalization. Need for emergency major/minor surgery: No There are no social concerns with this patient. Prescription drug management Prescriptions will include symptomatic care Patient's prior external medical records from other ER visits were reviewed by me as indicated. Prior testing and results from previous visits were reviewed. Prior tests were taken into account with medical decision making and resource utilization, independent historian/historians were used to obtain complete medical history. I independently interpreted the test that were performed, results were reviewed by me and considered findings on radiology if ordered. Medical management and examination interpretation discussions were had by me with other qualified healthcare professionals as indicated for the patient's care. 80-year-old male with UTI sepsis confusion, hemodynamically stable IV fluids and antibiotics given admitting to Medicine for further care and evaluation. DX & DISP Disposition: Inpatient Departure Impression: Primary Impression: Acute UTI Additional Impression: Sepsis Condition: Stable Referrals: BARRY STEEN MD (PCP) SHARON AVELAR MD Apr 04, 2025 15:23
[2025-04-04 16:00] VITALS: BP 123/71; PULSE 82; RESP 16; TEMP 98.1
[2025-04-04] MEDS ORDERED: ARTIFICAL TEARS SOL 15 ML OP PRN (16:00)
[2025-04-04] MEDS ORDERED: BENZOCAINE/MENTH/CETYLPYRD CL 1 EACH LOZENGE MM PRN (16:00)
[2025-04-04] MEDS ORDERED: NITROGLYCERIN 0.4 MG SL TAB SL PRN (16:00)
[2025-04-04] MEDS ORDERED: MAG/ALUM/SIMETH 30 ML UDCUP PO PRN (16:00)
[2025-04-04] MEDS ORDERED: guaiFENesin-DM 200/20MG 10ML PO PRN (16:00)
[2025-04-04] MEDS ORDERED: LOPERAMIDE HCL 2 MG CAP PO PRN (16:00)
[2025-04-04] MEDS ORDERED: LACTULOSE 20 GM/30 ML UDCUP PO PRN (16:00)
[2025-04-04 16:50] VITALS: O2SAT 99
--- NOTE | 2025-04-04 16:53 | NUR ---
GAVE REPORT TO DARVIN BRYANT, PATIENT WAS TRANSFERRED TO ROOM #403, PATIENT WAS TRANSPORTED VIA ER BED, ALONG WITH HIS PERSONAL BELONGINGS AND SON ACCOMPANYING HIM.
[2025-04-04 16:57] VITALS: BP 151/98; PULSE 81; RESP 19; TEMP 97.9
--- NOTE | 2025-04-04 16:57 | NUR ---
WENT IN TO REMOVE PATIENT OF MONITOR SO HE COULD BE TRANSFERRED, AND SAW THAT PATIENT HAD REMOVED HIS IV, CALLED TO ADVISE DARVIN BRYANT.
[2025-04-04 17:00] VITALS: BP 134/76; PULSE 72; RESP 16; TEMP 97.4; O2SAT 9
[2025-04-04 19:45] VITALS: O2SAT 98
[2025-04-04] MEDS: FAMOTIDINE 20MG TAB PO SCH (19:48)
--- NOTE | 2025-04-04 20:49 | HP ---
[facility] HISTORY & PHYSICAL Date Patient Seen: Apr 04, 2025 Time of Visit: 20:48 Supervising Physician: Dr. Gioavnni Parmar Primary Care Physician: BARRY STEEN MD (PCP) Outpatient Specialists: Inpatient Consults: PROBLEM LIST: Sepsis, POA Metabolic encephalopathy, POA Acute complicated cystitis, POA, with failed outpatient antibiotic therapy Recent UTI diagnosis on 03/27/2025 Failure to thrive, POA Acute dehydration, POA 2/2 acute anorexia/decreased p.o. Leukocytosis/lactic acidosis, POA Electrolyte derangement (hyponatremia, hypokalemia, hypochloremia) Acute kidney injury, GFR 46 Diabetes mellitus with hyperglycemia Anemia Hypoalbuminemia Frailty/debility/general body weakness Obesity, BMI 30.1 Octogenarian HPI: Mr. Winkler is an 80-year-old male with a history of CVA, DM type 2, hypercholesteremia who [place] [facility] [place] confusion, generalized weakness, and anorexia/ decreased p.o. intake. The patient presented to here two days ago for mild UTI and discharged on antibiotics. Daughter reported that the patient finish all the antibiotic, but is now showing worsening symptoms including hallucinations. Per chart review: The urine cultures done on 03/27/2025 showed no growth. Labs: WBCs 12.2, lactic acid 2.9, albumin 2.7, Na 132, potassium 3.4, chloride 95, GFR 46. UA positive for leuk EST. Chest x-ray: No acute cardiopulmonary pathology. CT head: No acute bleed or infarct. Stable chronic ischemic and atrophic changes. Stable old bilateral occipital infarcts with encephalomalacia and dystrophic calcifications. Stable small old lacunar infarct in the bilateral basal ganglia. ED provider request patient be admitted to the hospital with a diagnosis of acute UTI and sepsis. I assessed the patient bedside in room number four three. The patient appeared weak, somnolent, breathing was even, unlabored, in no distress. I informed the patient and daughter of labs, diagnostics, and plan of care. Daughter had multiple concerns and had multiple questions which were addressed by me. The patient and daughter verbalized understanding and is in agreement with the plan. Plan and assessment are listed below. PAST MEDICAL HX: see above PAST SURGICAL HX: Neck surgery SOCIAL HISTORY: No tobacco, ETOH, or illicit drug use Coded Allergies: No Known Allergies (Verified Allergy, Unknown, 07/06/16) No Known Drug Allergies (Unverified Allergy, Unknown, 08/28/24) REVIEW OF SYSTEMS: 12 point ROS reviewed with patient. Pertinent positives mentioned above. Otherwise negative. PHYSICAL EXAM: GENERAL: Alert, weak, awake oriented x 2 HEENT: EOMI, Sclera non icteric, moist mucosa NECK: Supple, no JVD, trachea midline LUNGS: Clear breath sounds bilaterally. No wheezes HEART: Regular rate and rhythm. Normal S1 and S2, without murmurs ABD: Abdomen soft, nontender. Bowel sounds present EXT: No clubbing cyanosis or edema NEURO: Alert and oriented 2, follows commands Vital Signs (last 8hr) Date Time Temp Pulse Resp B/P (MAP) Pulse Ox O2 Delivery O2 Flow Rate FiO2 04/04/25 17:00 97.3 72 16 134/76 96 Room Air 04/04/25 16:57 97.9 81 19 151/98 98 Room Air 0.0 04/04/25 16:50 99 Room Air* 0 21 04/04/25 16:00 98.1 82 16 123/71 98 Room Air 0.0 04/04/25 14:07 98.1 77 18 145/73 95 Room Air* 0 21 04/04/25 13:01 98.1 80 18 137/81 98 Room Air* 0 21 LABS: Hematology Labs: Test 04/04/25 11:50 Range/Units White Blood Count 12.2 H 4.8-10.8 K/uL Red Blood Count 5.15 4.50-6.20 MIL/uL Hemoglobin 15.6 14.0-18.0 g/dL Hematocrit 46.3 42-54 % Mean Corpuscular Volume 89.9 79-99 fL Mean Corpuscular Hemoglobin 30.3 27.0-33.0 pg Mean Corpuscular Hemoglobin Concent 33.7 32.0-36.0 g/dL Red Cell Distribution Width 12.4 11.0-15.5 % Platelet Count 321 130-400 K/uL Mean Platelet Volume 10.8 H 7.5-10.5 fL Immature Granulocyte % (Auto) 1.3 H 0-1 % Neutrophils (%) (Auto) 64.1 40.0-77.0 % Lymphocytes (%) (Auto) 26.1 21.0-51.0 % Monocytes (%) (Auto) 6.1 3.0-13.0 % Eosinophils (%) (Auto) 1.5 0.0-8.0 % Basophils (%) (Auto) 0.9 0.0-5.0 % Neutrophils # (Auto) 7.8 H 1.8-7.7 K/uL Lymphocytes # (Auto) 3.2 1.0-4.8 K/uL Monocytes # (Auto) 0.7 0.1-1.0 K/uL Eosinophils # (Auto) 0.18 0.00-0.70 K/uL Basophils # (Auto) 0.11 0.00-0.20 K/uL Absolute Immature Granulocyte (auto 0.16 0-1 K/uL Nucleated Red Blood Cells 0.0 0.0-0.19 % Chemistry Labs: Test 04/04/25 11:50 Range/Units Sodium Level 132 L 136-145 mmol/L Potassium Level 3.4 L 3.5-5.1 mmol/L Chloride Level 95 L 101-111 mmol/L Carbon Dioxide Level 26 21-32 mmol/L Blood Urea Nitrogen 24 H 7-18 mg/dL Creatinine 1.5 H 0.5-1.3 mg/dL Glomerular Filtration Rate Calc 46 >90 mL/min Random Glucose 184 H 70-105 mg/dL Lactic Acid Level 2.9 H 0.8-2.5 mmol/L Total Calcium 9.0 8.5-10.1 mg/dL Total Bilirubin 0.9 0.2-1.0 mg/dL Direct Bilirubin 0.3 0.0-0.3 mg/dL Aspartate Amino Transf (AST/SGOT) 19 10-37 U/L Alanine Aminotransferase (ALT/SGPT) 17 12-78 U/L Alkaline Phosphatase 119 50-136 U/L Total Creatine Kinase 32 # 21-232 U/L Troponin I High Sensitivity 44 4-75 ng/L Total Protein 7.9 6.0-8.3 g/dL Albumin 2.7 L 3.5-5.0 g/dL DIAGNOSTICS / RADIOLOGY RESULTS: [ ] PLAN Admit to medical floor with telemetry monitoring. Continue Rocephin IV 2 g Q 24H. IV gentle hydration. (ED administered NS L bolus) Obtain influenza, COVID, rapid strep, CT abdomen and pelvis. Follow blood cultures and urine cultures. P.r.n. medications for: Pain management, fever, nausea, vomiting, hypertension, hypertension Glucometer checks a.c. and HS with insulin regular sliding scale as needed per protocol. Blood pressure checks every 4 hours and as needed. Reconcile home medications once available. Monitor renal and liver function. Monitor electrolytes and treat accordingly. A.m. labs. + A1c GI and DVT prophylaxis. Further plan/orders per hospitalization course. NEURO: Minimize central acting medications as possible. Maintain fall precautions, adequate lighting during the day PULMONARY: Supplemental 02 as needed. Maintain aspiration precautions at all times CARDIOVASCULAR: Follow hemodynamics. Vital signs per facility protocol GI & NUTRITION: Continue with nutritional support. Continue stool softeners and laxatives as needed. KIDNEYS & ELECTROLYTES: Strict monitoring of intake, output and overall fluid balance. Avoid nephrotoxic medications to the extent possible. Medications to be dosed according to renal function. Monitor electrolytes and replace as needed ENDOCRINE: Maintain blood glucose between 100-180 at all times. Hypoglycemia protocol in place INFECTIOUS DISEASE: Trend temperature, WBC and procalcitonin level Follow cultures, deescalate antibiotics as soon as possible. Panculture if new onset fever ONCOLOGY/HEMATOLOGY/COAGULATION: Monitor for s/s of bleeding Monitor hemoglobin, coagulation studies as needed SKIN: Pressure ulcer prevention per facility protocol Specialty mattress ORTHO/REHAB: Continue PT/OT Prophylaxis: Continue GI and DVT prophylaxis Code Status: Full Resuscitation Disposition: TBD ATTESTATION BY PHYSICIAN I reviewed the documentation, medical decision making, and treatment plan as noted by the VINAY above. I agree with the findings and plan of care. Giovanni Parmar MD, LUCIA M [employer] SALES REPRESENTATIVE Apr 04, 2025 20:48
[2025-04-05] VITALS (9 sets, daily range): BP systolic 129–159; BP diastolic 69–90; PULSE 68–96; RESP 17–20; TEMP 97.7–98.8; O2SAT 96–100
[2025-04-05] MEDS: 0.9% NACL 500ML IV.SOLN 500 ML IV ONE (02:43)
[2025-04-05] MEDS ORDERED: TAMS-55 PO (04:00)
[2025-04-05] MEDS ORDERED: CEPH500C2 PO (04:00)
[2025-04-05 09:25] LABS: NUCLEATED RED BLOOD CELLS 0.0 % (0.0-0.19); PLATELET COUNT (AUTO) 246.0 K/uL (130-400); RED BLOOD CELL COUNT(AUTO) 3.7 MIL/uL (4.50-6.20); RED CELL DISTRIBUTION WIDTH 12.4 % (11.0-15.5); WHITE BLOOD COUNT (AUTO) 8.7 K/uL (4.8-10.8)
[2025-04-05] MEDS: THIAMINE HCL 100 MG TABLET PO SCH (09:33)
[2025-04-05 09:42] LABS: ASPARTATE AMINOTRANSFERASE 12.0 U/L (10-37); CREATININE 1.1 mg/dL (0.5-1.3); GLOMERULAR FILTR. RATE CALC 67.0 mL/min (>90); GLUCOSE,RANDOM 127.0 mg/dL (70-105); SODIUM SERUM 141.0 mmol/L (136-145); TOTAL PROTEIN, SERUM 6.3 g/dL (6.0-8.3); UREA NITROGEN, BLOOD 16.0 mg/dL (7-18)
--- NOTE | 2025-04-05 09:42 | NUR ---
DCP: [facility] met with pt and his daughter Tami Winkler [phone]. Daughter and son Maurice [phone] live with pt at pt's home. Son works, daughter is primary caregiver for pt. Prior to 1 week ago, Pt was independent of ADLS, able to transfer and ambulate on his own. For tthe past week, pt has been bed bound, required assist with ADLS, re positioning, changing of adult diapers. Daughter also does the home management, transportation and meal prep . At home, pt as a walker, w/c, bsc, shower chair. No HH or HD services. PCP is Lesa Burch and uses [facility] for rx needs. Daughter denies need for SNF at this time, [place] [facility]. DCP is home. Addendum: 04/05/25 at 0951 by LEMUEL GONZALES SS Amended: Links added.
[2025-04-05 10:30] LABS: SARS-CoV-2, RNA, NAAT NEGATIVE SARS CoV-2 (NEGATIVE)
[2025-04-05 10:34] LABS: INFLUENZA TYPE A Negative For Type A (NEGATIVE)
[2025-04-05 10:40] LABS: INFLUENZA TYPE B Positive For Type B (NEGATIVE)
[2025-04-05] MEDS: PoTASSium chl 10% ELIXIR 20MEQ 20 MEQ/15 ML UDCUP PO PRN (11:19)
[2025-04-05] MEDS: LACTATED RINGERS 1000ML 1,000 ML IV SCH (11:19)
[2025-04-05] MEDS: OSELTAMIVIR PHOSPHATE 75 MG CAP PO SCH (11:19)
--- NOTE | 2025-04-05 12:08 | PN ---
[facility] PROGRESS NOTE Date Patient Seen: Apr 05, 2025 Time of Visit: 12:07 Supervising Physician: Dr. Malia Bush Primary Care Physician: BARRY STEEN MD (PCP) Outpatient Specialists: Inpatient Consults: NA PROBLEM LIST: Sepsis present on admission Acute metabolic encephalopathy, POA Influenza B positive Acute complicated cystitis, POA, with failed outpatient antibiotic therapy Recent UTI diagnosis with kidney stones per daughter Failure to thrive, POA Acute dehydration, POA 2/2 acute anorexia/decreased p.o. Leukocytosis/lactic acidosis, POA Electrolyte derangement (hyponatremia, hypokalemia, hypochloremia) Acute kidney injury, GFR 46 Diabetes mellitus with hyperglycemia Anemia Hypoalbuminemia Frailty/debility/general body weakness Obesity, BMI 30.1 History of CVA Octogenarian INTERVAL HISTORY: Patient assessed at bedside. AAOX3. Currently on room air. Able to voice needs and follow commands. Sitting on bedside chair. Influenza B positive. Per daughter at bedside, patient had recent kidney stones. Patient denies any flank pain. CT abdomen/pelvis without contrast ordered. Creatinine improved to 1.1. Denies any chest pain, abdominal pain, nausea or vomiting. Plan of care explained to patient and daughter. Plan:. Start on Tamiflu BID Pending CT abdomen/pelvis without contrast Continue on IV Rocephin, follow culture results Resume home medications Disposition: TBD REVIEW OF SYSTEMS: 12 point ROS reviewed with patient. Pertinent positives mentioned above. Oth erwise negative. PHYSICAL EXAM: GENERAL: Alert, weak, awake oriented x 2 HEENT: EOMI, Sclera non icteric, moist mucosa NECK: Supple, no JVD, trachea midline LUNGS: Clear breath sounds bilaterally. No wheezes HEART: Regular rate and rhythm. Normal S1 and S2, without murmurs ABD: Abdomen soft, nontender. Bowel sounds present EXT: No clubbing cyanosis or edema NEURO: Alert and oriented 2, follows commands Vital Signs (last 8hr) Date Time Temp Pulse Resp B/P (MAP) Pulse Ox O2 Delivery O2 Flow Rate FiO2 04/05/25 11:24 98.2 77 18 129/69 100 Room Air 04/05/25 07:52 98.4 82 20 140/80 100 Room Air 04/05/25 05:02 98.2 86 18 151/90 94 Room Air LABS: Hematology Labs: Test 04/05/25 09:08 04/04/25 11:50 Range/Units White Blood Count 8.7 # 4.8-10.8 K/uL Red Blood Count 3.70 #L 4.50-6.20 MIL/uL Hemoglobin 11.4 #L 14.0-18.0 g/dL Hematocrit 34.0 #L 42-54 % Mean Corpuscular Volume 91.9 79-99 fL Mean Corpuscular Hemoglobin 30.8 27.0-33.0 pg Mean Corpuscular Hemoglobin Concent 33.5 32.0-36.0 g/dL Red Cell Distribution Width 12.4 11.0-15.5 % Platelet Count 246 130-400 K/uL Mean Platelet Volume 10.3 7.5-10.5 fL Nucleated Red Blood Cells 0.0 0.0-0.19 % Immature Granulocyte % (Auto) 1.3 H 0-1 % Neutrophils (%) (Auto) 64.1 40.0-77.0 % Lymphocytes (%) (Auto) 26.1 21.0-51.0 % Monocytes (%) (Auto) 6.1 3.0-13.0 % Eosinophils (%) (Auto) 1.5 0.0-8.0 % Basophils (%) (Auto) 0.9 0.0-5.0 % Neutrophils # (Auto) 7.8 H 1.8-7.7 K/uL Lymphocytes # (Auto) 3.2 1.0-4.8 K/uL Monocytes # (Auto) 0.7 0.1-1.0 K/uL Eosinophils # (Auto) 0.18 0.00-0.70 K/uL Basophils # (Auto) 0.11 0.00-0.20 K/uL Absolute Immature Granulocyte (auto 0.16 0-1 K/uL Chemistry Labs: Test 04/05/25 11:35 04/05/25 09:08 04/04/25 22:51 04/04/25 11:50 Range/Units Whole Blood Glucose 141 H 70-110 MG/DL Sodium Level 141 136-145 mmol/L Potassium Level 3.1 L 3.5-5.1 mmol/L Chloride Level 106 101-111 mmol/L Carbon Dioxide Level 28 21-32 mmol/L Blood Urea Nitrogen 16 7-18 mg/dL Creatinine 1.1 0.5-1.3 mg/dL Glomerular Filtration Rate Calc 67 >90 mL/min Random Glucose 127 H 70-105 mg/dL Total Calcium 7.8 L 8.5-10.1 mg/dL Magnesium Level 1.80 1.80-2.40 mg/dL Total Bilirubin 0.5 # 0.2-1.0 mg/dL Aspartate Amino Transf (AST/SGOT) 12 10-37 U/L Alanine Aminotransferase (ALT/SGPT) 12 # 12-78 U/L Alkaline Phosphatase 88 # 50-136 U/L Total Protein 6.3 # 6.0-8.3 g/dL Albumin 2.2 L 3.5-5.0 g/dL Lactic Acid Level 2.0 0.8-2.5 mmol/L Direct Bilirubin 0.3 0.0-0.3 mg/dL Total Creatine Kinase 32 # 21-232 U/L Troponin I High Sensitivity 44 4-75 ng/L DIAGNOSTICS / RADIOLOGY RESULTS: NA PLAN NEURO: Minimize central acting medications as possible. Maintain fall precautions, adequate lighting during the day PULMONARY: Supplemental 02 as needed. Maintain aspiration precautions at all times CARDIOVASCULAR: Follow hemodynamics. Vital signs per facility protocol GI & NUTRITION: Continue with nutritional support. Continue stool softeners and laxatives as needed. KIDNEYS & ELECTROLYTES: Strict monitoring of intake, output and overall fluid balance. Avoid nephrotoxic medications to the extent possible. Medications to be dosed according to renal function. Monitor electrolytes and replace as needed ENDOCRINE: Maintain blood glucose between 100-180 at all times. Hypoglycemia protocol in place INFECTIOUS DISEASE: Trend temperature, WBC and procalcitonin level Follow cultures, deescalate antibiotics as soon as possible. Panculture if new onset fever ONCOLOGY/HEMATOLOGY/COAGULATION: Monitor for s/s of bleeding Monitor hemoglobin, coagulation studies as needed SKIN: Pressure ulcer prevention per facility protocol Specialty mattress ORTHO/REHAB: Continue PT/OT Prophylaxis: Continue GI and DVT prophylaxis Code Status: Full Resuscitation Disposition: TASIA CENTENO NP Apr 05, 2025 12:08
[2025-04-05] MEDS ORDERED: PHARMACY COMMUNICATION MISC SCH (16:30)
[2025-04-06] VITALS (7 sets, daily range): BP systolic 119–184; BP diastolic 75–95; PULSE 79–103; RESP 17–18; TEMP 97.7–98.9; O2SAT 98
[2025-04-06 04:10] LABS: NUCLEATED RED BLOOD CELLS 0.0 % (0.0-0.19); PLATELET COUNT (AUTO) 311.0 K/uL (130-400); RED BLOOD CELL COUNT(AUTO) 4.7 MIL/uL (4.50-6.20); RED CELL DISTRIBUTION WIDTH 12.4 % (11.0-15.5); WHITE BLOOD COUNT (AUTO) 9.9 K/uL (4.8-10.8)
[2025-04-06 04:26] LABS: ASPARTATE AMINOTRANSFERASE 17.0 U/L (10-37); CREATININE 1.2 mg/dL (0.5-1.3); GLOMERULAR FILTR. RATE CALC 61.0 mL/min (>90); GLUCOSE,RANDOM 133.0 mg/dL (70-105); SODIUM SERUM 138.0 mmol/L (136-145); TOTAL PROTEIN, SERUM 7.2 g/dL (6.0-8.3); UREA NITROGEN, BLOOD 15.0 mg/dL (7-18)
--- NOTE | 2025-04-06 10:57 | HMCIMG ---
EXAM: CT Abdomen and Pelvis Without IV contrast CLINICAL HISTORY: abdominal pain TECHNIQUE: Axial computed tomography images of the abdomen and pelvis without intravenous contrast. CONTRAST: No IV contrast. COMPARISON: Study dated 03/27/2025. FINDINGS: LUNG BASES: The right lung base demonstrates a few emphysematous bullae. The largest one measures 3 cm. Dependent airway disease along bilateral lower lobes, presumed to represent basal atelectasis. No pleural effusions are seen. Coronary artery calcifications. LIVER: Unremarkable. GALLBLADDER AND BILE DUCTS: The gallbladder appears within normal limits. No radioopaque gallstones are seen. No biliary ductal dilatation is evident. PANCREAS: Unremarkable. SPLEEN: Unremarkable. ADRENAL GLANDS: Unremarkable. KIDNEYS, URETERS, AND BLADDER: There is 4.0 mm calculus in the left distal ureter with mild hydroureter and hydronephrosis. Mild bilateral perinephric fat stranding is concerning for renal parenchymal disease. The kidneys appear within normal limits. No urinary calculi are seen. STOMACH AND BOWEL: Colonic diverticulosis without diverticulitis. Unremarkable appearance of the stomach and bowel. No evidence of bowel obstruction. No evidence suggesting enteritis or colitis. APPENDIX: Normal appendix. PERITONEUM: No free fluid. No free air. LYMPH NODES: No lymphadenopathy is evident. REPRODUCTIVE: Unremarkable as visualized. VASCULATURE: Atherosclerotic changes in the form of eccentric vessel wall calcification in the abdominal aorta and its major branches. No evidence of abdominal aortic aneurysm. BONES: Degenerative changes in the visualized spine in the form of marginal osteophytes and degenerative discs at multiple lumbar levels. No aggressive appearing osseous lesion. No acute osseous pathology is evident. IMPRESSION: 4.0 mm left distal ureteral calculus with mild hydroureter and hydronephrosis. /[place]
[2025-04-06] MEDS: PoTASSium chloRIDE 20MEQ ER 20 MEQ ERTAB PO PRN (11:03)
--- NOTE | 2025-04-06 13:54 | PN ---
[facility] PROGRESS NOTE Date Patient Seen: Apr 06, 2025 Time of Visit: 13:54 Supervising Physician: [ ] Primary Care Physician: BARRY STEEN MD (PCP) Outpatient Specialists: Inpatient Consults: NA PROBLEM LIST: Sepsis present on admission Acute metabolic encephalopathy, POA Influenza B positive Acute complicated cystitis, POA, with failed outpatient antibiotic therapy Recent UTI diagnosis with kidney stones per daughter Failure to thrive, POA Acute dehydration, POA 2/2 acute anorexia/decreased p.o. Leukocytosis/lactic acidosis, POA Electrolyte derangement (hyponatremia, hypokalemia, hypochloremia) Acute kidney injury, GFR 46 Diabetes mellitus with hyperglycemia Anemia Hypoalbuminemia Frailty/debility/general body weakness Obesity, BMI 30.1 History of CVA Octogenarian INTERVAL HISTORY: Patient assessed at bedside. AAOX3. Currently on room air. Able to voice needs and follow commands. Sitting on bedside chair. Influenza B positive. Per daughter at bedside, patient had recent kidney stones. Patient denies any flank pain. CT abdomen/pelvis without contrast ordered. Creatinine improved to 1.1. Denies any chest pain, abdominal pain, nausea or vomiting. Plan of care explained to patient and daughter. Plan:. Start on Tamiflu BID Pending CT abdomen/pelvis without contrast Continue on IV Rocephin, follow culture results Resume home medications Disposition: TBD REVIEW OF SYSTEMS: 12 point ROS reviewed with patient. Pertinent positives mentioned above. Otherwise negative. PHYSICAL EXAM: GENERAL: Alert, weak, awake oriented x 2 HEENT: EOMI, Sclera non icteric, moist mucosa NECK: Supple, no JVD, trachea midline LUNGS: Clear breath sounds bilaterally. No wheezes HEART: Regular rate and rhythm. Normal S1 and S2, without murmurs ABD: Abdomen soft, nontender. Bowel sounds present EXT: No clubbing cyanosis or edema NEURO: Alert and oriented 2, follows commands Vital Signs (last 8hr) Date Time Temp Pulse Resp B/P (MAP) Pulse Ox O2 Delivery O2 Flow Rate FiO2 04/06/25 11:42 99.0 100 18 119/77 94 Room Air 04/06/25 08:05 98.1 103 18 184/95 95 Room Air 04/06/25 07:51 98 Room Air* 0 21 LABS: Hematology Labs: Test 04/06/25 03:54 Range/Units White Blood Count 9.9 4.8-10.8 K/uL Red Blood Count 4.70 # 4.50-6.20 MIL/uL Hemoglobin 14.3 # 14.0-18.0 g/dL Hematocrit 42.4 # 42-54 % Mean Corpuscular Volume 90.2 79-99 fL Mean Corpuscular Hemoglobin 30.4 27.0-33.0 pg Mean Corpuscular Hemoglobin Concent 33.7 32.0-36.0 g/dL Red Cell Distribution Width 12.4 11.0-15.5 % Platelet Count 311 # 130-400 K/uL Mean Platelet Volume 10.5 7.5-10.5 fL Nucleated Red Blood Cells 0.0 0.0-0.19 % Chemistry Labs: Test 04/06/25 11:26 04/06/25 03:54 04/04/25 22:51 Range/Units Whole Blood Glucose 156 H 70-110 MG/DL Sodium Level 138 136-145 mmol/L Potassium Level 3.8 3.5-5.1 mmol/L Chloride Level 101 101-111 mmol/L Carbon Dioxide Level 29 21-32 mmol/L Blood Urea Nitrogen 15 7-18 mg/dL Creatinine 1.2 0.5-1.3 mg/dL Glomerular Filtration Rate Calc 61 >90 mL/min Random Glucose 133 H 70-105 mg/dL Total Calcium 8.9 8.5-10.1 mg/dL Magnesium Level 2.00 1.80-2.40 mg/dL Total Bilirubin 0.3 # 0.2-1.0 mg/dL Aspartate Amino Transf (AST/SGOT) 17 10-37 U/L Alanine Aminotransferase (ALT/SGPT) 15 # 12-78 U/L Alkaline Phosphatase 104 50-136 U/L Total Protein 7.2 6.0-8.3 g/dL Albumin 2.6 L 3.5-5.0 g/dL Lactic Acid Level 2.0 0.8-2.5 mmol/L DIAGNOSTICS / RADIOLOGY RESULTS: [ ] PLAN NEURO: Minimize central acting medications as possible. Maintain fall precautions, adequate lighting during the day PULMONARY: Supplemental 02 as needed. Maintain aspiration precautions at all times CARDIOVASCULAR: Follow hemodynamics. Vital signs per facility protocol GI & NUTRITION: Continue with nutritional support. Continue stool softeners and laxatives as needed. KIDNEYS & ELECTROLYTES: Strict monitoring of intake, output and overall fluid balance. Avoid nephrotoxic medications to the extent possible. Medications to be dosed according to renal function. Monitor electrolytes and replace as needed ENDOCRINE: Maintain blood glucose between 100-180 at all times. Hypoglycemia protocol in place INFECTIOUS DISEASE: Trend temperature, WBC and procalcitonin level Follow cultures, deescalate antibiotics as soon as possible. Panculture if new onset fever ONCOLOGY/HEMATOLOGY/COAGULATION: Monitor for s/s of bleeding Monitor hemoglobin, coagulation studies as needed SKIN: Pressure ulcer prevention per facility protocol Specialty mattress ORTHO/REHAB: Continue PT/OT Prophylaxis: Continue GI and DVT prophylaxis Code Status: Full Resuscitation Disposition: CAROLS JOHN Apr 06, 2025 13:54 ROMAN WOO MD Apr 09, 2025 16:48
--- NOTE | 2025-04-06 16:40 | NUR ---
BEDSIDE SWALLOW EVAL COMPLETED. +s/s of aspiration. Recommend pureed solids, moderately thick liquids and pills crushed with pureed as tolerated until MBSS. Compensatory strategies: 1. sit upright during oral intake 2. small bites/sips 3. slow oral intake 4. NO STRAW SUPERVISOR BODY ASSEMBLY reviewed results and recommendations with patient and nurse Amira. SUPERVISOR BODY ASSEMBLY educated patient on risks and consequences of aspiration. Speech therapy will follow up with MBSS. All questions answered. Addendum: 04/06/[address] HAZEL YU Amended: Links added.
[2025-04-07 04:00] VITALS: BP 142/79; PULSE 78; RESP 18; TEMP 97.6
[2025-04-07 05:29] LABS: NUCLEATED RED BLOOD CELLS 0.0 % (0.0-0.19); PLATELET COUNT (AUTO) 270.0 K/uL (130-400); RED BLOOD CELL COUNT(AUTO) 4.35 MIL/uL (4.50-6.20); RED CELL DISTRIBUTION WIDTH 12.2 % (11.0-15.5); WHITE BLOOD COUNT (AUTO) 8.4 K/uL (4.8-10.8)
[2025-04-07 05:40] LABS: CREATININE 1.2 mg/dL (0.5-1.3); GLOMERULAR FILTR. RATE CALC 61.0 mL/min (>90); GLUCOSE,RANDOM 135.0 mg/dL (70-105); SODIUM SERUM 138.0 mmol/L (136-145); UREA NITROGEN, BLOOD 17.0 mg/dL (7-18)
[2025-04-07 07:45] VITALS: BP 141/76; PULSE 80; RESP 18; TEMP 98.4
[2025-04-07 08:00] VITALS: O2SAT 96
[2025-04-07 11:44] VITALS: BP 129/72; PULSE 64; RESP 18; TEMP 98.3
--- NOTE | 2025-04-07 14:16 | NUR ---
Nutritional Note: Chart, meds, and labs Reviewed. Recommend: -Continue thiamine, -Nephrovite MVI combination of B vitamins may be used to treat or prevent vitamin deficiency due to poor diet. -Magic Cup 4oz w/ PM tray: Provides 9gm pro/ 290kcal and 20 vitamins and minerals. [place]uddy to serve with meals as a means of adding calories and protein for unintended weight loss. - Electrolyte replacements per protocol -Monitor feeding tolerance, %, wt, and labs -Document PO intake and wt daily. -If No BM >3days consider bowel stimulant. -Consider appetite stimulant if intake remains <75%for 3 days. -Schedule outpatient RD f/u for long-term nutrition care. - Notify RD if additional nutrition concerns arise. SEE RD Nutritional Assessment for additional assessment information. Addendum: 04/07/25 at [address] Amended: Links added.
--- NOTE | 2025-04-07 14:30 | NUR ---
MBSS COMPLETED. Aspiration during the swallow with mixed textures with cough response; deep non-transient penetration with regular solids and mildly thick liquids via tsp with throat clear response only with liquids; transient penetration with moderately thick liquids via tsp. RECOMMEND: pureed solids, moderately thick liquids (via spoon), and pills crushed with pureed solids as tolerated. COMPENSATORY STRATEGIES: 1. sit upright during oral intake 2. small bites/sips 3. slow oral intake 4. extra dry swallows 5. NO MIXED TEXTURES 6. NO STRAWS 7. liquids via spoon DIAGNOSTIC FINDINGS: Pt presented with moderate pharyngeal dysphagia characterized by decreased tongue base retraction; delayed pharyngeal response trigger; and decreased hyo-laryngeal elevation/excursion evidenced by premature spillage to valleculae with spillover to pyriform sinuses; residue on base of tongue, valleculae, pyriform sinuses, and posterior pharyngeal wall and occasionally pooling in pyriform sinuses leading to penetrations and/or aspirations; resulting in aspiration during the swallow with mixed textures with cough response; deep non-transient penetration with regular solids and mildly thick liquids via tsp with throat clear response only with liquids; transient penetration with moderately thick liquids via tsp. Cervial spinal instrumentation noted at C3-C7 level. LIFT TRUCK OPERATOR reviewed results and recommendations with patient and nurse. LIFT TRUCK OPERATOR educated patient on risks and consequences of aspiration. Speech therapy warranted at this time to address moderate pharyngeal dysphagia during length of stay. All questions answered. Addendum: 04/08/[address] HAZEL YU Amended: Links added.
[2025-04-07 16:13] VITALS: BP 140/80; PULSE 80; RESP 16; TEMP 97.6
[2025-04-07 20:00] VITALS: BP 159/86; PULSE 77; RESP 20; TEMP 98.1; O2SAT 97
--- NOTE | 2025-04-07 22:43 | PN ---
[facility] PROGRESS NOTE Date Patient Seen: Apr 07, 2025 Time of Visit: 22:40 Supervising Physician: Dr. Olguin Primary Care Physician: BARRY STEEN MD (PCP) Outpatient Specialists: Inpatient Consults: NA PROBLEM LIST: Sepsis present on admission Acute metabolic encephalopathy, POA Influenza B positive Acute complicated cystitis, POA, with failed outpatient antibiotic therapy Recent UTI diagnosis with kidney stones per daughter Failure to thrive, POA Acute dehydration, POA 2/2 acute anorexia/decreased p.o. Leukocytosis/lactic acidosis, POA Electrolyte derangement (hyponatremia, hypokalemia, hypochloremia) Acute kidney injury, GFR 46 Diabetes mellitus with hyperglycemia Anemia Hypoalbuminemia Frailty/debility/general body weakness Obesity, BMI 30.1 History of CVA Octogenarian INTERVAL HISTORY: Patient was seen at bedside today with daughter present. Has been station appears to be improved today, he continues on Rocephin and Tamiflu for flu B and cystitis. Patient failed swallow study with recommendations for. Solids and moderately thick liquids as well as crushed pills to be served with purees. He is on room air at this time with a white count of 8.4. CT abdomen positive for 4 mm renal stone, no indication for acute intervention at this time with recom mendation to follow up as outpatient with Urology. Recommendations for MBS accepted and currently pending evaluation. Patient likely to discharge home within the next 24-48 hours per discussion with daughter at bedside. Denies any chest pain, abdominal pain, nausea or vomiting. Plan of care explained to patient and daughter. Plan:. Continue Tamiflu BID Pending MBSS Continue on IV Rocephin, follow culture results Resume home medications Disposition: TBD REVIEW OF SYSTEMS: 12 point ROS reviewed with patient. Pertinent positives mentioned above. Otherwise negative. PHYSICAL EXAM: GENERAL: Alert, weak, awake oriented x 2 HEENT: EOMI, Sclera non icteric, moist mucosa NECK: Supple, no JVD, trachea midline LUNGS: Clear breath sounds bilaterally. No wheezes HEART: Regular rate and rhythm. Normal S1 and S2, without murmurs ABD: Abdomen soft, nontender. Bowel sounds present EXT: No clubbing cyanosis or edema NEURO: Alert and oriented 2, follows commands Vital Signs (last 8hr) Date Time Temp Pulse Resp B/P (MAP) Pulse Ox O2 Delivery O2 Flow Rate FiO2 04/07/25 20:00 98.1 77 20 159/86 97 04/07/25 16:13 97.5 80 16 140/80 97 Room Air LABS: Hematology Labs: Test 04/07/25 05:23 Range/Units White Blood Count 8.4 4.8-10.8 K/uL Red Blood Count 4.35 L 4.50-6.20 MIL/uL Hemoglobin 13.2 L 14.0-18.0 g/dL Hematocrit 39.2 L 42-54 % Mean Corpuscular Volume 90.1 79-99 fL Mean Corpuscular Hemoglobin 30.3 27.0-33.0 pg Mean Corpuscular Hemoglobin Concent 33.7 32.0-36.0 g/dL Red Cell Distribution Width 12.2 11.0-15.5 % Platelet Count 270 130-400 K/uL Mean Platelet Volume 10.1 7.5-10.5 fL Nucleated Red Blood Cells 0.0 0.0-0.19 % Chemistry Labs: Test 04/07/25 19:57 04/07/25 05:23 04/06/25 03:54 Range/Units Whole Blood Glucose 159 H 70-110 MG/DL Sodium Level 138 136-145 mmol/L Potassium Level 3.8 3.5-5.1 mmol/L Chloride Level 103 101-111 mmol/L Carbon Dioxide Level 29 21-32 mmol/L Blood Urea Nitrogen 17 7-18 mg/dL Creatinine 1.2 0.5-1.3 mg/dL Glomerular Filtration Rate Calc 61 >90 mL/min Random Glucose 135 H 70-105 mg/dL Total Calcium 8.5 8.5-10.1 mg/dL Magnesium Level 2.00 1.80-2.40 mg/dL Total Bilirubin 0.3 # 0.2-1.0 mg/dL Aspartate Amino Transf (AST/SGOT) 17 10-37 U/L Alanine Aminotransferase (ALT/SGPT) 15 # 12-78 U/L Alkaline Phosphatase 104 50-136 U/L Total Protein 7.2 6.0-8.3 g/dL Albumin 2.6 L 3.5-5.0 g/dL DIAGNOSTICS / RADIOLOGY RESULTS: [ ] PLAN NEURO: Minimize central acting medications as possible. Maintain fall precautions, adequate lighting during the day PULMONARY: Supplemental 02 as needed. Maintain aspiration precautions at all times CARDIOVASCULAR: Follow hemodynamics. Vital signs per facility protocol GI & NUTRITION: Continue with nutritional support. Continue stool softeners and laxatives as needed. KIDNEYS & ELECTROLYTES: Strict monitoring of intake, output and overall fluid balance. Avoid nephrotoxic medications to the extent possible. Medications to be dosed according to renal function. Monitor electrolytes and replace as needed ENDOCRINE: Maintain blood glucose between 100-180 at all times. Hypoglycemia protocol in place INFECTIOUS DISEASE: Trend temperature, WBC and procalcitonin level Follow cultures, deescalate antibiotics as soon as possible. Panculture if new onset fever ONCOLOGY/HEMATOLOGY/COAGULATION: Monitor for s/s of bleeding Monitor hemoglobin, coagulation studies as needed SKIN: Pressure ulcer prevention per facility protocol Specialty mattress ORTHO/REHAB: Continue PT/OT Prophylaxis: Continue GI and DVT prophylaxis Code Status: Full Resuscitation Disposition: TBCARLOS PLATT Apr 07, 2025 22:43
[2025-04-08] VITALS: BP 157/84; PULSE 70; RESP 18; TEMP 98.1
[2025-04-08 04:00] VITALS: BP 144/88; PULSE 78; RESP 18; TEMP 98
[2025-04-08 04:11] LABS: NUCLEATED RED BLOOD CELLS 0.0 % (0.0-0.19); PLATELET COUNT (AUTO) 282.0 K/uL (130-400); RED BLOOD CELL COUNT(AUTO) 4.49 MIL/uL (4.50-6.20); RED CELL DISTRIBUTION WIDTH 12.2 % (11.0-15.5); WHITE BLOOD COUNT (AUTO) 9.9 K/uL (4.8-10.8)
[2025-04-08 04:15] LABS: CREATININE 1.3 mg/dL (0.5-1.3); GLOMERULAR FILTR. RATE CALC 55.0 mL/min (>90); GLUCOSE,RANDOM 137.0 mg/dL (70-105); SODIUM SERUM 136.0 mmol/L (136-145); UREA NITROGEN, BLOOD 16.0 mg/dL (7-18)
[2025-04-08 08:00] VITALS: BP 155/78; PULSE 70; RESP 18; TEMP 98
[2025-04-08 08:03] VITALS: O2SAT 97
[2025-04-08] MEDS ORDERED: OSEL75 PO (11:16)
[2025-04-08] MEDS ORDERED: AMOX-426 PO (11:16)
[2025-04-08 11:45] VITALS: BP 136/86; PULSE 94; RESP 18; TEMP 98.3
--- NOTE | 2025-04-08 13:42 | NUR ---
NURSE NOTE DISCHARGE EDUCATION GIVEN TO PT REGARDING INSTRUCTIONS AND APPOINTMENTS. IV CATH REMOVED AND INTACT. PT VERBALIZED UNDERSTANDING. PENDING TRANSPORTATION. Addendum: 04/08/25 at 1407 by KENYETTA AGUILERA LVN LVN PATIENT TAKEN DOWN VIA WHEELCHAIR TO PRIVATE CAR. NO FURTHER COMMENTS.
--- NOTE | 2025-04-08 14:10 | HMCIMG ---
MODIFIED BARIUM SWALLOW W CINE REASON: EVALUATE DYSPHAGIA FINDINGS: Fluoroscopic assistance was provided to the speech pathologist while performing examination. For findings and dietary recommendations, refer to speech pathologist's report. FLUORO TIME: 4.8 minutes IMPRESSION: Modified barium swallow as described.
--- NOTE | 2025-04-08 15:58 | DS ---
[facility] DISCHARGE SUMMARY Date Patient Seen: Apr 08, 2025 Time of Visit: 15:58 Supervising Physician: Dr. Olguin Primary Care Physician: BARRY STEEN MD (PCP) Outpatient Specialists: Inpatient Consults: NA PROBLEM LIST: Sepsis present on admission Acute metabolic encephalopathy, POA Influenza B positive Acute complicated cystitis, POA, with failed outpatient antibiotic therapy Recent UTI diagnosis with kidney stones per daughter Failure to thrive, POA Acute dehydration, POA 2/2 acute anorexia/decreased p.o. Leukocytosis/lactic acidosis, POA Electrolyte derangement (hyponatremia, hypokalemia, hypochloremia) Acute kidney injury, GFR 46 Diabetes mellitus with hyperglycemia Anemia Hypoalbuminemia Frailty/debility/general body weakness Obesity, BMI 30.1 History of CVA Octogenarian HOSPITAL COURSE: HPI (per admitting provider) Mr. Winkler is an 80-year-old male with a history of CVA, DM type 2, hypercholesteremia who presented to [facility] [place] ED for evaluation confusion, generalized weakness, and anorexia/ decreased p.o. intake. The patient presented to here two days ago for mild UTI and discharged on antibiotics. Daughter reported that the patient finish all the antibiotic, but is now showing worsening symptoms including hallucinations. Per chart review: The urine cultures done on 03/27/2025 showed no growth. Labs: WBCs 12.2, lactic acid 2.9, albumin 2.7, Na 132, potassium 3.4, chloride 95, GFR 46. UA positive for leuk EST. Chest x-ray: No acute cardiopulmonary pathology. CT head: No acute bleed or infarct. Stable chronic ischemic and atrophic changes. Stable old bilateral occipital infarcts with encephalomalacia and dystrophic calcifications. Stable small old lacunar infarct in the bilateral basal ganglia. ED provider request patient be admitted to the hospital with a diagnosis of acute UTI and sepsis. I assessed the patient bedside in room number four three. The patient appeared weak, somnolent, breathing was even, unlabored, in no distress. I informed the patient and daughter of labs, diagnostics, and plan of care. Daughter had multiple concerns and had multiple questions which were addressed by me. The patient and daughter verbalized understanding and is in agreement with the plan. Plan and assessment are listed below. The patient was treated for the following problems: Patient was admitted following episodes of acute metabolic encephalopathy at home and was found to be positive for influenza B as well as acute complicated cystitis. Patient was already on treatment as outpatient prior to arriving to the hospital for cystitis as well as renal calculi. CT scan of the abdomen shows a 4 mm stone, prior to discharge patient is at baseline mentation, he has received a bedside swallow study and MBS on this admission with new recommendations for the patient's dietary substance. Daughter updated at bedside of the new findings as well as medications to be sent to pharmacy including remaining days of Tamiflu, antibiotic, and Flomax. ACTIVE PROBLEM LIST FOR THE HOSPITALIZATION: Sepsis present on admission Acute metabolic encephalopathy, POA Influenza B positive Acute complicated cystitis, POA, with failed outpatient antibiotic therapy Recent UTI diagnosis with kidney stones per daughter Failure to thrive, POA Acute dehydration, POA 2/2 acute anorexia/decreased p.o. Leukocytosis/lactic acidosis, POA Electrolyte derangement (hyponatremia, hypokalemia, hypochloremia) Acute kidney injury, GFR 46 CHRONIC PROBLEMS: continue previous management per PCP unless otherwise indicated Diabetes mellitus with hyperglycemia Anemia Hypoalbuminemia Frailty/debility/general body weakness Obesity, BMI 30.1 History of CVA Octogenarian AUDIT REVIEWER FINDINGS/RECOMMENDATIONS: [ ] PROCEDURES: as mentioned above DISCHARGE MEDICATIONS: Pt hemodynamically stable and afebrile at time of discharge. PCP notified of patients admission, hospital course and discharge. PHYSICAL EXAM: GENERAL: Alert, weak, awake oriented x 2 HEENT: EOMI, Sclera non icteric, moist mucosa NECK: Supple, no JVD, trachea midline LUNGS: Clear breath sounds bilaterally. No wheezes HEART: Regular rate and rhythm. Normal S1 and S2, without murmurs ABD: Abdomen soft, nontender. Bowel sounds present EXT: No clubbing cyanosis or edema NEURO: Alert and oriented 2, follows commands FOLLOW-UP: Follow-up with PCP in 2-3 days RECOMMENDATIONS: See Discharge Instructions This case was seen and discussed with my supervising physician. More than 30 minutes spent on discharge process, including evaluation of the patient, discussion with nursing staff, medication reconciliation and follow-up appointments CARLOS HERNÁNDEZ Apr 08, 2025 15:58
== END 2025-04-08 14:15 | disposition home or self-care (01) | DRG 871 ==
LOC: EDH 10:50 → EDHIP 15:38 → 4AH 17:00
PROVIDERS: ADMIT Internal Medicine Pulmonary Disease; ATTEND Internal Medicine Pulmonary Disease
DX: A41.9 Sepsis, unspecified organism (principal); G93.41 Metabolic encephalopathy; N30.00 Acute cystitis without hematuria; E87.20 Acidosis, unspecified; E87.1 Hypo-osmolality and hyponatremia; N17.9 Acute kidney failure, unspecified; E78.00 Pure hypercholesterolemia, unspecified; Z86.73 Personal history of transient ischemic attack (TIA), and cerebral infarction without residual deficits; J10.1 Influenza due to other identified influenza virus with other respiratory manifestations; R62.7 Adult failure to thrive; E66.9 Obesity, unspecified; D64.9 Anemia, unspecified; N20.0 Calculus of kidney; E88.09 Other disorders of plasma-protein metabolism, not elsewhere classified; E86.0 Dehydration; R63.0 Anorexia; E87.6 Hypokalemia; E87.8 Other disorders of electrolyte and fluid balance, not elsewhere classified; E11.65 Type 2 diabetes mellitus with hyperglycemia; R54 Age-related physical debility; Z68.30 Body mass index [BMI] 30.0-30.9, adult; Z87.442 Personal history of urinary calculi
CPT/HCPCS: 36415; 70450; 71045; 74176; 74230; 80048; 80053; 80076; 81001; 82550; 82948; 83605; 83735; 84484; 85025; 85027; 87040; 87086; 87635; 87804; 87880; 92610; 92611; 93005; 96365; 99285; G0378; J0696; J7030; J7040; J7120